=== PATIENT | female | born 1990 | race Caucasian/White ===

== ENCOUNTER 2021-09-21 21:21 | Emergency (ER) | payer OTHER ==
[2021-09-21 22:21] LABS: HEMOGLOBIN 10.9 gm/dl (12.3-15.3); RED BLOOD COUNT 5.18 M/UL (4.00-5.10); WHITE BLOOD COUNT 11.3 K/UL (4.5-11.0)
[2021-09-21 22:44] LABS: BUN/CREATININE RATIO 13 (0-10)
== END 2021-09-22 02:20 | disposition home or self-care (01) ==
LOC: ER1 21:21
PROVIDERS: Physician Assistant
DX: N93.8 Other specified abnormal uterine and vaginal bleeding (principal); Z88.0 Allergy status to penicillin; F17.210 Nicotine dependence, cigarettes, uncomplicated
CPT/HCPCS: 80048; 81001; 84703; 85025; 99284

== ENCOUNTER → 2021-10-14 | Outpatient (CLI) | payer OTHER | LOC: US 13:29 | DX: N93.8 Other specified abnormal uterine and vaginal bleeding (principal) | CPT/HCPCS: 76830 ==

== ENCOUNTER 2021-11-08 08:00 | Emergency (ER) | payer OTHER ==
[2021-11-08] MEDS ORDERED: IBUPROFEN600 MG PO (09:46)
== END 2021-11-08 10:04 | disposition home or self-care (01) ==
LOC: ER1 08:00
DX: S60.211A Contusion of right wrist, initial encounter (principal); Z88.0 Allergy status to penicillin; W22.8XXA Striking against or struck by other objects, initial encounter; Y92.009 Unspecified place in unspecified non-institutional (private) residence as the place of occurrence of the external cause
CPT/HCPCS: 29125; 73110; 73130; 99283

== ENCOUNTER → 2022-01-12 | Outpatient (CLI) | payer OTHER ==
[~2022-01-12] MED LIST: IBUPROFEN600 MG PO
== END ==
LOC: KOH-I 15:15
DX: S93.431A Sprain of tibiofibular ligament of right ankle, initial encounter (principal)
CPT/HCPCS: 73721